=== PATIENT | female | born 1975 ===

== ENCOUNTER → 2025-03-09 | Outpatient (CLI) | payer OTHER | END | disposition home or self-care (01) | LOC: LAB SHORT 19:22 → LAB 19:22 | DX: L08.9 Local infection of the skin and subcutaneous tissue, unspecified (principal) | CPT/HCPCS: 87070; 87077; 87147; 87186; 87205 ==

== ENCOUNTER → 2025-03-09 | Outpatient (CLI) | payer OTHER | LOC: LAB 07:29 → LAB SHORT 07:29 | DX: L30.8 Other specified dermatitis (principal) | CPT/HCPCS: 88312 ==